=== PATIENT | male | born 1960 | race Caucasian/White ===

== ENCOUNTER 2023-10-18 20:19 | Emergency (ER) | payer OTHER, SELFPAY ==
--- NOTE | 2023-10-18 20:33 | ED.HEATRA ---
HPI - Head Injury General Chief complaint: Fall Stated complaint: fell 10/18 head laceration Related Data Home Medications Medication Instructions Recorded Confirmed diazepam 10 mg tablet 10 mg PO Q6H PRN Anxiety 01/19/21 lorazepam 1 mg tablet (Ativan) 1 mg PO QID PRN Anxiety 01/19/21 zolpidem 10 mg tablet (Ambien) 10 mg PO BEDTIME PRN Sleep 01/19/21 Allergies Allergy/AdvReac Type Severity Reaction Status Date / Time ciprofloxacin Allergy Muscle Pain Verified 01/19/21 13:43 quetiapine [From Seroquel] Allergy Per H&P ? Verified 01/19/21 11:43 Reaction PMFSH Past Medical History Medical History (Updated 10/19/23 @ 14:18 by Shelley Higuera CNP) Insomnia DEANGELO (obstructive sleep apnea) Hypertension History of fall Chronic pain Hepatitis C Depression Hx of pancreatitis Alcohol abuse Hx of cardiomyopathy Bipolar 1 disorder Surgical History (Updated 01/19/21 @ 13:35 by Davida Perales RN) Hx of colonoscopy History of foot surgery Hx of appendectomy Hx of left inguinal hernia repair Social History Social History Advance Directives: No Advance Directives Information Provided: No Physical Exam Vital Signs: Vital Signs: Last Vital Signs Temp 97.0 F 10/18/23 20:35 Pulse 93 10/18/23 20:35 Resp 20 10/18/23 20:35 BP 120/79 10/18/23 20:35 Pulse Ox 98 10/18/23 20:35 O2 Del Method Room Air 10/18/23 20:35 BMI result Body Mass Index 24.2 Course Course Course Narrative: This is an RME: Additional HPI, ROS, PE not included below will be deferred to primary provider. Patient is a 63-year-old male who presents emergency department for evaluation after a fall sustaining head laceration around 1530. Reportedly sat on his bed on top of the pile of clothes when he slid off of the bed, striking his head and to the radiator. Sustaining a laceration. Denies use of anticoagulants. Clinically appears intoxicated, he does endorse drinking ?lot of alcohol? today. Denies pain. Unsteady gait per family member, required WC for transport in, does not use at baseline. Plan: CT head to exclude ICH, SDH, lac will require repair Discharge Plan Discharge Clinical Impression: Head injury Patient Disposition: Elopement Prescriptions: No Action diazepam 10 mg Tablet 10 mg PO Q6H PRN (Reason: Anxiety) lorazepam [Ativan] 1 mg Tablet 1 mg PO QID PRN (Reason: Anxiety) zolpidem [Ambien] 10 mg Tablet 10 mg PO BEDTIME PRN (Reason: Sleep) Discharge Date/Time: 10/18/23 23:46
[2023-10-18 20:35] VITALS: BP 120/79; PULSE 93; RESP 20; TEMP 36.1; O2SAT 98; BMI 24.2
== END 2023-10-18 23:46 | disposition left against medical advice (07) ==
LOC: HO.ED 23:41
PROVIDERS: Emergency Provider Emergency Medicine; PCP Family Medicine
DX: S01.91XA Laceration without foreign body of unspecified part of head, initial encounter (principal); X58.XXXA Exposure to other specified factors, initial encounter; Y93.9 Activity, unspecified; Y92.9 Unspecified place or not applicable; Y99.9 Unspecified external cause status
CPT/HCPCS: 99281